=== PATIENT | male | born 1965 | race Caucasian/White ===

== ENCOUNTER 2024-09-09 14:06 | Emergency (ER) | payer MEDICAID ==
[~2024-09-09] VITALS: Ht 185.4 cm; Wt 88.5 kg
[~2024-09-09 14:06] MED LIST: ASPI-543 PO; ATOR-47 PO; B-COCAP34 PO; CLOP75TA70 PO; LOSA-534 PO; THIA100T10 PO
[2024-09-09 14:15] VITALS: BP 125/58; RESP 18; TEMP 97.5; O2SAT 97
[2024-09-09 15:23] LABS: Basophils # (auto) 0.1 10 ^3/uL (0-0.2); Basophils % (auto) 1.1 % (0.0-2.0); Eosinophils # (auto) 0.2 10 ^3/uL (0-0.8); Eosinophils % (auto) 2.7 % (0.0-7.0); Hematocrit 41.6 % (41.0-53.0); Hemoglobin 13.9 g/dL (13.5-17.5); Lymphocytes # (auto) 3.7 10 ^3/uL (0.4-5.4); Lymphocytes % (auto) 41.8 % (10.0-50.0); Mean Corpuscular Hemoglobin 32.4 pg (28.0-32.0); Mean Corpuscular Hgb Conc. 33.4 g/dL (32.0-36.0); Monocytes # (auto) 0.7 10 ^3/uL (0-1.3); Monocytes % (auto) 8.1 % (0.0-12.0); Neutrophils # (auto) 4.1 10 ^3/uL (1.6-8.6); Neutrophils % (auto) 46.3 % (37.0-80.0); Nucleated Red Blood Cells % 0.1 %; Platelet Count (auto) 269 10^3/uL (140-450); Red Blood Cells 4.29 10^6/uL (4.5-5.90); Red Cell Distribution Width 14.6 % (11.8-14.3); White Blood Cell 8.7 10^3/uL (4.4-10.8)
--- NOTE | 2024-09-09 15:24 | DVH ---
EXAM: CT HEAD WITHOUT CONTRAST; DATE: 09/09/2024 03:00 PM HISTORY: stroke workup, history of stroke, here w memory problem COMPARISON: None TECHNIQUE: Axial images were obtained and reformatted in coronal and sagittal planes. All CT scans at this medical facility are performed using dose modulation techniques as appropriate t o a performed exam including the following: Automated exposure control was utilized; adjustment of th e MA and/or KV according to patient size; and use of iterative reconstruction technique. CT Dose: CTDI volume is 56.11 mGy. Dose-length product is 899.4 mGy*cm FINDINGS: Supratentorial Region: No evidence for large acute territorial ischemia. No intracranial hemorrhage is noted. Confluent white matter hypoattenuating foci are noted bilaterally, which typically reflect chronic microvascular ischemic changes. Posterior Fossa: No acute abnormality. Brainstem: Unremarkable. Sellar/Suprasellar Region: Unremarkable. Ventricles, Cisterns, Sulci: Age-appropriate. Orbits: Unremarkable. Paranasal Sinuses: Unremarkable. Mastoid Air Cells: Unremarkable. Vasculature: Intracranial arterial calcified plaque formation noted. Bones/Soft Tissues: No acute abnormality. Other: None. IMPRESSION: 1. No acute intracranial process.
[2024-09-09 15:29] LABS: Potassium 4.5 mmol/L (3.5-5.1); Sodium 139 mmol/L (136-145)
[2024-09-09 15:30] LABS: Anion Gap 3 (5-15); Calcium 9.4 mg/dL (8.7-10.4); Carbon Dioxide 27 mmol/L (20-31)
[2024-09-09 15:32] VITALS: PULSE 56
--- NOTE | 2024-09-09 15:32 | ED.PDOC ---
History of Present Illness HPI Comments 59 y/o M, with a history of 2x previous strokes, HTN, and tobacco use, presents with significant other for c/o headache, dizziness, and chest pain, today. Patient reports being sent over, while receiving preliminary consultation in preparation for upcoming carotid surgery, this week, due to endorsement of co mplaints and to r/o possible stroke. Patient reports on symptoms being ongoing for the past "several months" following initial unprovoked onset. He states on last stroke taking place 2x months ago, states no focal neurologic deficits except for "memory problems. Patient was states that he is currently taking Plavix and denies any recent injuries, foreign travel, or sick contacts. He denies any facial droop, vision or speech changes, dizziness, weakness, or other symptoms. Chief Complaint: Headache Time Seen by MD: 14:50 Primary Care Provider: SUDHA Reviewed Notes: Nurses Notes, Medications, Allergies Allergies: Coded Allergies: Penicillins (Unverified Allergy, Unknown, 09/09/24) Home Meds Reported Medications B-Complex Vitamins (B Complex) Cap, 1 TAB PO, CAP 09/09/24 Aspirin (Aspir-Low) 81 Mg Tab, 81 MG PO DAILY for 30 Days, MG 09/09/24 Losartan Potassium (Losartan Potassium) 50 Mg Tab, 50 MG PO DAILY for 30 Days, MG 09/09/24 Clopidogrel Bisulfate (CLOPIDOGREL) 75 Mg Tab, 75 MG PO DAILY for 30 Days, MG 09/09/24 Thiamine Hcl (VITAMIN B-1) Unknown Strength Tb, PO, TAB 09/09/24 Atorvastatin Calcium (ATORVASTATIN CALCIUM) 80 Mg Tab, 1 TAB PO DAILY, #30 TAB 5 Refills 09/09/24 Information Source: Patient Mode of Arrival: Ambulatory Past Medical History PAST MEDICAL HISTORY: CVA, Depression, HTN Past Medical History (Other): Bipolar disorder, chronic back pain, 2x strokes w/left-visual deficits Surgical History (Other): right-elbow surgery Family History Family History: Unknown Social History Smoker: Cigarettes Alcohol: Denies ETOH Use Drugs: Denies Drug Use Lives In: Home Other cane walker assistance All Other Systems: Reviewed and Negative (Comprehensive systems review obtained and negative except for what is stated in the HPI.) Physical Exam General Appearance: No Apparent Distress, Normal HEENT: Normal ENT Inspection, Pharynx Normal, TMs Normal Neck: Full Range of Motion, Non-Tender, Normal, Normal Inspection Respiratory: Chest Non-Tender, Lungs Clear, No Accessory Muscle Use, No Respiratory Distress, Normal Breath Sounds Cardiovascular: No Edema, No JVD, No Murmur, No Gallop, Normal Peripheral Pulses, Regular Rate/Rhythm Breast Exam: Deferred Gastrointestinal: No Organomegaly, Non Tender, No Pulsatile Mass, Normal Bowel Sounds, Soft Genitalia: Deferred Pelvic: Deferred Rectal: Deferred Extremities: No calf tenderness, Normal capillary refill, Normal inspection, Normal range of motion, Non-tender, No pedal edema Musculoskeletal : Apperance: Normal Neurologic: Alert, sheet layer II-XII nml as Tested, No Motor Deficits, Normal Affect, Normal Mood, No Sensory Deficits, Other (Patient alert and answering questions appropriately, 5/5 strength to bilateral upper and lower extremities, ambulating with a steady gait without assistance, sensation intact to light touch throughout, cranial nerves 2-12 intact, no pronator drift, normal [id number], no truncal ataxia) Cerebellar Function: Normal Reflexes: NOT DONE Skin: Dry, Normal Color, Warm Lymphatic: NOT DONE Was a procedure done? Was a procedure done?: No EKG EKG : Pulse Rate (adult): 56 [place]: Normal Cardiac Rhythm: NSR Block: None Hypertrophy: None ST: Normal Differential Dx Considerations may include: CVA, TIA, migraines, tension headache, ACS X-Ray, Labs, Meds, VS Vital Signs Date Time Temp Pulse Resp B/P (MAP) Pulse Ox O2 Delivery O2 Flow Rate FiO2 09/09/24 15:32 56 09/09/24 14:36 56 09/09/24 14:15 97.5 60 18 125/58 (80) 97 97.5 Lab Test 09/09/24 14:58 09/09/24 14:31 Range/Units White Blood Count 8.7 4.4-10.8 10^3/uL Red Blood Count 4.29 L 4.5-5.90 10^6/uL Hemoglobin 13.9 13.5-17.5 g/dL Hematocrit 41.6 41.0-53.0 % Mean Corpuscular Volume 97.0 80.0-100.0 fL Mean Corpuscular Hemoglobin 32.4 H 28.0-32.0 pg Mean Corpuscular Hemoglobin Concent 33.4 32.0-36.0 g/dL Red Cell Distribution Width 14.6 H 11.8-14.3 % Platelet Count 269 140-450 10^3/uL Mean Platelet Volume 10.3 6.9-10.8 fL Neutrophils (%) (Auto) 46.3 37.0-80.0 % Lymphocytes (%) (Auto) 41.8 10.0-50.0 % Monocytes (%) (Auto) 8.1 0.0-12.0 % Eosinophils (%) (Auto) 2.7 0.0-7.0 % Basophils (%) (Auto) 1.1 0.0-2.0 % Neutrophils # (Auto) 4.1 1.6-8.6 10 ^3/uL Lymphocytes # (Auto) 3.7 0.4-5.4 10 ^3/uL Monocytes # (Auto) 0.7 0-1.3 10 ^3/uL Eosinophils # (Auto) 0.2 0-0.8 10 ^3/uL Basophils # (Auto) 0.1 0-0.2 10 ^3/uL Nucleated Red Blood Cells 0.1 % Prothrombin Time 10.5 9.3-11.8 sec Prothrombin Time INR 0.99 0.9-1.15 Activated Partial Thromboplast Time 28.2 24.5-34.5 SEC Sodium Level 139 136-145 mmol/L Potassium Level 4.5 3.5-5.1 mmol/L Chloride Level 109 H 98-107 mmol/L Carbon Dioxide Level 27 20-31 mmol/L Anion Gap 3 L 5-15 Blood Urea Nitrogen 17 9-23 mg/dL Creatinine 0.84 0.700-1.30 mg/dL Glomerular Filtration Rate Calc 100 >90 mL/min BUN/Creatinine Ratio 20.2 H 10.0-20.0 Serum Glucose 94 74-106 mg/dL Calcium Level 9.4 8.7-10.4 mg/dL B-Type Natriuretic Peptide 35.19 0-100 pg/mL Lipase 36 12-53 U/L POC Glucose 102 70-106 mg/dl X-Ray, Labs, Meds, VS Comment 59-year-old male with a medical history most notable for prior strokes x2 here today for stroke rule out and due to complaints of chest pain. Vital signs stable, afebrile. Physical exam as above without any acute findings including a normal neurologic exam. Labs overall reassuring without any significant acute findings. EKG without evidence of acute ischemia. CT head scan without evidence of acute pathology as well. I informed the patient of his overall unremarkable findings and reassuring workup and he stated that he felt significantly improved and wanted to leave and spent the weekend at home and then return on Thursday for the operation on his carotid artery. I informed the patient that my preference would be to admit him to the hospital for further monitoring, cardiac risk stratification, serial troponins, and possibly MRI of brain/neurology consult however the patient seemed hesitant to this plan. I left the patient and his significant other to think about this plan and when I went to re-evaluate them they had eloped from the waiting room. I attempted to call the patient at his cell phone however no answer. Informed the video clerk who will attempt to contact the patient and have him come back to the ER. Time of 1ST Reevaluation: 15:20 Reevaluation 1ST: Unchanged Patient Education/Counseling: Diagnosis, Treatment Family Education/Counseling: Diagnosis, Treatment Additional Information Previous medical encounters reviewed: N/A The following tests were ordered, and results were reviewed by me: BMP, CBC, BNP, lipase, CT head w/o contrast, partial thromboplastin, prothrombin time w/reflex Additional Information was gathered from interviewing the following independent historians: N/A I reviewed and agreed with the following test results read by other providers: CT head w/o contrast I discussed treatment and results with medical personnel and: Patient Departure 1 Departure Time of Disposition: 19:48 Impression: Primary Impression: Headache Additional Impressions: Dizziness Chest pain History of stroke Disposition: 07 LEFT AWOL/ELOPED Condition: Guarded Critical Care Note Critical Care Time?: No Stability Stability form required: No Heart Score Heart Score: Heart Score Response (Comments) Value History N/A 0 EKG N/A 0 Age N/A 0 Risk Factors N/A 0 Troponin N/A 0 Total 0 KASSY CRUMP Sep 09, 2024 15:32 EMMA OLIVEIRA MD Sep 09, 2024 19:50
[2024-09-09 15:35] LABS: BUN/Creatinine Ratio 20.2 (10.0-20.0); Blood Urea Nitrogen 17 mg/dL (9-23); Glucose 94 mg/dL (74-106); Lipase 36 U/L (12-53)
[2024-09-09 15:36] LABS: Chloride 109 mmol/L (98-107)
[2024-09-09 15:44] LABS: INR 0.99 (0.9-1.15); Partial Thromboplastin Time 28.2 SEC (24.5-34.5); Prothrombin Time 10.5 sec (9.3-11.8)
--- NOTE | 2024-09-15 10:05 | ECG ---
[facility] Test Date: 2024-09-09 Test Time: 14:30:05 Pat Name: BOB FARRAR Department: ER Room: Gender: M [employer] Operator: : 1965 Requested By: EMMA OLIVEIRA Order Number: [id number] Reading MD: Wolfgang Downing Measurements Intervals Omega Rate: 56 P: 25 NM: 171 QRS: -29 QRSD: 91 T: 54 QT: 456 QTc: 441 Interpretive Statements Sinus rhythm Borderline left axis deviation Probable anteroseptal infarct, old Electronically Signed On 09-16-2024 13:34:57 PDT by Wolfgang Downing Please click the below link to view image of tracing.
== END 2024-09-09 19:11 | disposition left against medical advice (07) ==
LOC: EDSEX 14:06 → ER 14:06
DX: R51.9 Headache, unspecified (principal); R42 Dizziness and giddiness; R07.89 Other chest pain; I10 Essential (primary) hypertension; F32.A Depression, unspecified; G89.29 Other chronic pain; F17.210 Nicotine dependence, cigarettes, uncomplicated; Z79.82 Long term (current) use of aspirin; Z86.73 Personal history of transient ischemic attack (TIA), and cerebral infarction without residual deficits; Z79.899 Other long term (current) drug therapy; Z88.0 Allergy status to penicillin; Z79.02 Long term (current) use of antithrombotics/antiplatelets
CPT/HCPCS: 36415; 70450; 80048; 82947; 82962; 83690; 83880; 85025; 85610; 85730; 93005

== ENCOUNTER 2024-09-12 06:19 | Inpatient (IN) | payer MEDICAID ==
[2024-09-12] VITALS (20 sets, daily range): BP systolic 86–128; BP diastolic 47–73; PULSE 48–95; RESP 13–27; TEMP 97.5–97.8; O2SAT 94–98
[~2024-09-12] VITALS: Ht 185.4 cm; Wt 86.2 kg
[2024-09-12] MEDS ORDERED: LIDOCAINE 2% (LOCAL ANESTH.) PF 5ml SDV ONE (09:53)
[2024-09-12] MEDS ORDERED: SUGAMMADEX 200mg/2ml Vial (100MG/ML) IV ONE (09:53)
[2024-09-12] MEDS ORDERED: PROPOFOL 10 MG/ML 20 ML IV ONE (09:53)
[2024-09-12] MEDS ORDERED: ONDANSETRON HCL 4 MG/2 ML VIAL ONE (09:53)
[2024-09-12] MEDS ORDERED: GLYCOPYRROLATE 0.2 MG/ML 1ML VIAL ONE (09:53)
[2024-09-12] MEDS ORDERED: SODIUM CHLORIDE LOCK 10 ML ONE ×2 (09:53→09:57)
[2024-09-12] MEDS ORDERED: ROCURONIUM 10MG/ML 10ML VIAL IV ONE (09:53)
[2024-09-12] MEDS ORDERED: LIDOCAINE HCL 2% TOP JELLY 5ML TOP ONE (09:53)
[2024-09-12] MEDS ORDERED: DexAMETHasone SOD PHOS 10MG/1ML VIAL INJ ONE (09:53)
[2024-09-12] MEDS ORDERED: PHENYLEPHRINE HCL 10 MG/ML VL ONE (09:53)
[2024-09-12] MEDS ORDERED: KETAMINE 50mg/ML 1ml syringe ONE (09:54)
[2024-09-12] MEDS ORDERED: fentaNYL CITRATE 100 MCG/2 ML VL ONE (09:54)
[2024-09-12] MEDS: ceFAZolin 1GM/50ML 100 ML IV ONE (11:40)
[2024-09-12] MEDS ORDERED: ePHEDrine SULFATE 50 MG/ML AMP ONE (12:15)
[2024-09-12] MEDS: LIDOCAINE 1% (LOCAL ANESTH.) PF 5ml SDV ONE (12:16)
[2024-09-12] MEDS ORDERED: ESMOLOL HCL 10 ML IV ONE (12:32)
[2024-09-12] MEDS: BUPIVACAINE 0.25% INJ 50ML VIAL ONE (13:38)
[2024-09-12] MEDS: LIDOCAINE 1% HCL (LOCAL ANESTH.) INJ 20ML MDV ONE (13:38)
--- NOTE | 2024-09-12 14:10 | DVHOP2 ---
Operative Report - 2 Report Details Date: 09/12/24 Preop Diagnosis: Left carotid artery stenosis Postop Diagnosis: Same Surgeon: Basil Beasley MD Anesthesiologist: General endotracheal tube Anesthesia: General Drains: Left LISA drain Consent: The patient was informed of the risks and benefits of the procedure. These include but are not limited to complications of anesthesia, postoperative infection, incomplete relief of symptoms, recurrence of symptoms, damage to blood vessels, nerves and tendons, deep venous thrombosis, pulmonary embolism and possible need for repeat surgery in the future. Complications: None Estimated Blood Loss: 200 mL Findings: Severe left common carotid/internal carotid artery stenosis Indications for Surgery: Left carotid artery stenosis history of CVA Name of Procedure Performed Left carotid endarterectomy Procedure Details Procedure Details: The patient was identified in the preop hold area as being Mr. Bhagat. He was consented and preopped by myself he was brought back to the operating room placed on operative table in supine position after adequate induction of anesthesia antibiotics and time-out the left neck was prepped and draped in n ormal surgical fashion a standard left carotid endarterectomy incision was made Bovie cauterization was used to dissect through the platysma. The sternocleidomastoid muscle was dissected and laterally retracted. The internal jugular vein was also retracted the facial vein branch was ligated with 2-0 silk sutures followed by hemoclips. Dissection was then taken down to the left c ommon carotid artery proximal control of the left common carotid artery was obtained with vessel loops. A dissection of the carotid bulb was then undertaken 1% lidocaine preservative-free was injected at the bifurcation no hemodynamic changes were noted. The superior thyroid artery was then proximally controlled with vessel loops. The external carotid artery was then isolated and controlled with vessel loops. Followed by the internal carotid artery above the level of the plaque. Was controlled with vessel loops. 3000 units of heparin was given to the patient. After approximately 5 minutes the vessels involved were clamped and a arteriotomy was made in the common carotid artery was extended up to the internal carotid artery the plaque was then removed with a [place] once the entire plaque has removed the Burnett shunt was then inserted to reestablish flow. The lumen of the carotid artery was then cleaned out no further debris was left behind and all plaque was removed. Once the lumen was clean the bovine pericardial patch was then brought onto the field and sewn to the common and internal carotid artery in a running fashion with 6 0 Prolene suture. At completion of the anastomosis the shunt had been removed and all vessels involved were flushed prior to completion. At the completion flow was restored to all vessels involved. Two interrupted Prolene sutures were used to stop a suture line bleed. Hemostasis was obtained Surgicel was placed over top of the suture line. A LISA drain was inserted and a lateral incision in the left neck. The carotid artery sheath was then closed with interrupted 2-0 Vicryl sutures followed by the platysmal layer closure with 2-0 Vicryl sutures followed by a dermal layer of 2-0 Vicryl sutures. 4-0 Monocryl subcuticular suture was used for the skin. Dermabond was applied. Patient awoke without any difficulties neurologically intact. Sponge and needle counts were correct at the end of the procedure. Patient was taken to the PACU in a stable condition. Condition Good Disposition pacu BASIL BEASLEY Jr., MD Sep 12, 2024 14:10
[2024-09-12] MEDS ORDERED: hydrALAZINE HCL 20 MG/ML VL IV PRN (14:15)
[2024-09-12] MEDS ORDERED: FLUMAZENIL 0.1 MG/ML INJ 10ML MDV IV PRN (14:15)
[2024-09-12] MEDS ORDERED: NALOXONE HCL 0.4 MG/ML VIAL IV PRN (14:15)
[2024-09-12] MEDS ORDERED: MORPHINE SULFATE INJ 2 MG/ml SYRG IV PRN (14:15)
[2024-09-12] MEDS ORDERED: NITROGLYCERIN 0.4 MG SL TAB SL PRN (14:15)
[2024-09-12] MEDS ORDERED: ONDANSETRON HCL 4 MG/2 ML VIAL IV PRN (14:15)
[2024-09-12] MEDS ORDERED: ePHEDrine SULFATE 50 MG/ML AMP IV PRN (14:15)
[2024-09-12] MEDS ORDERED: fentaNYL CITRATE 100 MCG/2 ML VL IV PRN (14:15)
[2024-09-12] MEDS: HYDROmorphone HCL 2 MG/ML VL/or syr IV PRN (15:02)
[2024-09-12] MEDS: ONDANSETRON HCL 4 MG/2 ML VIAL IV PRN (16:22)
[2024-09-12] MEDS: ONDANSETRON HCL 4 MG/2 ML VIAL ONE (16:23)
[2024-09-13] VITALS (46 sets, daily range): BP systolic 36–128; BP diastolic 23–92; PULSE 53–88; RESP 11–20; TEMP 97.6–98.5; O2SAT 92–99
[2024-09-13] MEDS: OXYCODONE W/ ACETAMINOPHEN 5/325MG TABLET PO PRN (00:09)
--- NOTE | 2024-09-13 07:10 | DVHPN2 ---
Progress Note Date Seen: Sep 13, 2024 Has the PT tested + for MRSA If YES, has PT been informed?: No Medical Necessity Reason Pt with a Central, PICC or Fol: No Subjective Patient reports: No new complaints Review of Systems: HEENT:Normal, CVS:Normal, RESPIRATORY:Normal, GI:Normal, :Normal, MSK:Normal, NEURO:Normal Objective vital signs Vital Sign Date Time Temp Pulse Resp B/P (MAP) Pulse Ox O2 Delivery O2 Flow Rate FiO2 09/13/24 06:00 12 98 Nasal Cannula* 2 28 09/13/24 06:00 88 09/13/24 04:00 97.6 98/53 (68) 97.6 Total Intake and Output 09/12/24 09/12/24 09/13/24 15:00 23:00 07:00 Intake Total 200 ml 50 ml Output Total 20 ml Balance 200 ml 30 ml medications Current Medications Medications Dose Ordered Sig/Yamila Route Start Time Stop Time Status Last Admin Dose Admin Nicardipine HCl 250 ml @ 50 mls/hr Q5H IV 09/12/24 11:00 Nitroglycerin 0.4 mg Q5MINP PRN SL 09/12/24 14:15 Morphine Sulfate 2 mg Q30M PRN IV 09/12/24 14:15 Ondansetron HCl 4 mg Q4HPRN PRN IV 09/12/24 16:15 09/12/24 16:22 4 MG Oxycodone/ Acetaminophen 1 tab Q4HP PRN PO 09/12/24 20:15 09/13/24 00:09 1 TAB Examination: GENERAL:Normal, HEENT:Normal, NECK:Normal (Left carotid incision clean dry and intact no edema. LISA drain removed.), LUNGS:Normal, CVS:Normal, ABDOMEN:Normal, MSK:Normal, SKIN:Normal, NEURO:Normal, :Normal Problem List/Assessment/Plan Problem List/Assessment/Plan S/P left carotid endarterectomy postop day 1. DC A-line DC Canela Out of bed Advanced diet Discharged home once medically stable Plan discussed with: Patient My Orders My Orders Orders - WESTON MONREAL Jr., MD Procedure Category Date Status Time Admit ADMIT 09/12/24 Transmitted 14:10 Nitroglycerin PHA 09/12/24 In Process Sublingual (Ntrostat 14:15 Morphine Sulfate PHA 09/12/24 In Process Injection 14:15 Stat Ekg For Chest RITCHIE 09/12/24 In Process Pain 14:10 Notify Of Changes [facility] 09/12/24 In Process From Base 14:10 It Applications Manager For [facility] 09/12/24 In Process 24 Hours 14:10 Emergency Dysrhythmia [facility] 09/12/24 In Process Protocol 14:10 Rhythm Strips Once RITCHIE 09/12/24 In Process Every Shift 14:10 Oxygen By Nasal RT 09/12/24 Transmitted Cannula 14:10 Regular Diet DIET 09/12/24 Transmitted Dinner Oxycodone W/ Acet PHA 09/12/24 In Process 5/325mg Tab (Percocet 20:15 D/C Canela RITCHIE 09/13/24 Transmitted 07:07 D/C Pa Catheter ORDERS 09/13/24 Transmitted 07:07 WESTON MONREAL Jr., MD Sep 13, 2024 07:10
[2024-09-13] MEDS ORDERED: NICO14DI29 TD (13:19)
[2024-09-13] MEDS ORDERED: NICO21DI37 TD (13:19)
--- NOTE | 2024-09-13 13:20 | DVHHP2 ---
Review of Systems Allergies: Coded Allergies: Penicillins (Unverified Allergy, Unknown, 09/09/24) Medications Current Medications Medications Dose Ordered Sig/Yamila Route Start Time Stop Time Status Last Admin Dose Admin Nicardipine HCl 250 ml @ 50 mls/hr Q5H IV 09/12/24 11:00 Nitroglycerin 0.4 mg Q5MINP PRN SL 09/12/24 14:15 Morphine Sulfate 2 mg Q30M PRN IV 09/12/24 14:15 Ondansetron HCl 4 mg Q4HPRN PRN IV 09/12/24 16:15 09/12/24 16:22 4 MG Oxycodone/ Acetaminophen 1 tab Q4HP PRN PO 09/12/24 20:15 09/13/24 00:09 1 TAB Exam Vital Signs Vital Signs Date Time Temp Pulse Resp B/P (MAP) Pulse Ox O2 Delivery O2 Flow Rate FiO2 09/13/24 12:00 98.5 67 17 110/57 (74) 94 98.5 09/13/24 10:00 Nasal Cannula* 2 28 Assessment/Plan Assessment/Plan SEE DICTATED NOTE Plan discussed with: Patient My Orders Orders - KEESHA ROBERTS MD Procedure Category Date Status Time Discharge DISCHARGE 09/13/24 Transmitted 13:17 Date of Service: Sep 13, 2024 Billing Provider: KEESHA ROBERTS MD Common Visit Codes: 53515-[id number] INP/OBS CARE (HIGH) Secondary Visit Codes: 52872-[id number] CHNG SMOKING >10MIN KEESHA ROBERTS MD Sep 13, 2024 13:20
--- NOTE | 2024-09-13 13:21 | DVHDS2 ---
Discharge Summary Date of Admission Sep 12, 2024 at 14:10 Date of Discharge: Sep 13, 2024 Brief Hx & Hospital Course: SEE DICTATED NOTE Condition at Discharge: Good Final Diagnosis/Problems List CAROTID ENDARTECTOMY Discharge Disposition: Home Discharge Instruct/Medications Diet: Cardiac 2g Na,low cholest Activity: No Restrictions, As Tolerated Follow Up/Referral: FU WITH PCP/SURGERY Medications: RESUME HOME MEDS SCRIPT TO PHARMACY Discharge Statement: "Patient was advised to return to the ER or call 911 if any headaches, dizziness, shortness of breath, chest pain, abdominal pain, bleeding, fevers, or worsening of medical condition. Patient was counseled about treatment plan, medications, possible side effects, patientverbalized understanding. All questions were answered to the best of my ability. This discharge took greater then 30 minutes in planning, reviewing documentation, counseling the patient, and discussing with other team members." ASSESSMENT ASSESSMENT Assessment CAROTID ENDARTECTOMY Date of Service: Sep 13, 2024 Billing Provider: KEESHA ROBERTS MD Common Visit Codes: 48832-TWJ/OBS DISCH DAY >30min KEESHA ROBERTS MD Sep 13, 2024 13:21
--- NOTE | 2024-09-13 13:30 | DVHDS ---
DATE OF DISCHARGE: 09/13/2024 HISTORY OF PRESENT ILLNESS: The patient is a 59-year-old gentleman who was admitted after he underwent left carotid endarterectomy and has history of hypertension, hyperlipidemia, tobacco abuse and previous CVA. HOSPITAL COURSE: The patient did well postoperatively. He has been cleared for discharge by Dr. Beasley. The patient will be discharged to resume his home medications as well as to be on nicotine patch in a tapering dose. He will follow up with his primary as well as Dr. Beasley. FINAL DIAGNOSES: Therefore, * History of cerebrovascular accident. * Hypertension. * Hyperlipidemia. * Tobacco abuse. * Status post left carotid endarterectomy. Time spent in discharge planning and review of plan with the patient's family and nursing was 37 minutes. MD HUMPHREY Pena/MOISE TID: [id number] RECEIPT: [id number]
--- NOTE | 2024-09-13 14:02 | DVHHP ---
ADMIT DATE: 09/13/2024 HISTORY OF PRESENT ILLNESS: The patient is a 59-year-old gentleman who was admitted after he had undergone left carotid endarterectomy. The patient denies any significant pain. No new focal deficits. No chest pain, no shortness of breath. No nausea or vomiting. REVIEW OF SYSTEMS: Review of rest of systems are otherwise currently negative. PAST MEDICAL HISTORY: Significant for hypertension, hyperlipidemia, stroke that affected his right side along with . SOCIAL HISTORY: Smokes about a pack a day. Denies alcohol intake. Lives with family. FAMILY HISTORY: Negative. PHYSICAL EXAMINATION: GENERAL: The patient is awake, alert. VITAL SIGNS: Temperature of 98.5, pulse 67 per minute, blood pressure 110/57. SHEENT: Unremarkable except for dressing on the left neck. NECK: There is no JVD, no pedal edema. LUNGS: Equal bilaterally. No added sounds. CARDIOVASCULAR SYSTEM: S1 and S2 are regular. No murmurs. ABDOMEN: Soft. There is no edema, no organomegaly. NEUROLOGIC: The patient has a vision disturbance, especially involving his upper gan. MUSCULOSKELETAL: Normal. ASSESSMENT AND PLAN: * Hypertension, for which the patient's blood pressure will be monitored. * Hyperlipidemia. * Tobacco abuse, for which he has been advised to quit. The patient will be placed on nicotine patch. Time spent was 11 minutes. * History of cerebrovascular accident. * Status post left carotid endarterectomy, for which he will be monitored for focal deficits as well as for hemodynamics. MD HUMPHREY Pena/ZOLTAN/MARY TID: [id number] RECEIPT: [id number]
--- NOTE | 2024-09-15 13:44 | DVHINCON2 ---
Date Seen: Sep 12, [address]ascular surgery Dr. Beasley. Reason for Consultation Medical management. History of Present Illness 59-year-old male with a known history of hypertension, chronic tobacco use disorder, left carotid artery stenosis with a previous history of CVA presented to the hospital for elective procedure for left carotid artery stenosis. Patient was underwent successful left carotid endarterectomy. Postprocedure patient was fairly well. Patient was initially was on nicardipine drip which was discontinued. Dr. Beasley cleared the patient to be discharged with close follow up as an outpatient with the PCP has been as with vascular surgery. Tobacco cessation counseling has been discussed with the patient. Family History: Patient reports no known family medical history. Allergies: Coded Allergies: Penicillins (Unverified Allergy, Unknown, 09/09/24) Home Meds Active Scripts Nicotine (Nicotine Transdermal Syst) 21 Mg/24 Hr Dis, 21 MG TD DAILY for 30 Days, #30 DIS Prov:KEESHA ROBERTS MD 09/13/24 Nicotine (Nicotine Transdermal Syst) 14 Mg/24 Hr Dis, 14 MG TD DAILY for 30 Days, #30 DIS Prov:KEESHA ROBERTS MD 09/13/24 Reported Medications B-Complex Vitamins (B Complex) Cap, 1 TAB PO, CAP 09/09/24 Aspirin (Aspir-Low) 81 Mg Tab, 81 MG PO DAILY for 30 Days, MG 09/09/24 Losartan Potassium (Losartan Potassium) 50 Mg Tab, 50 MG PO DAILY for 30 Days, MG 09/09/24 Clopidogrel Bisulfate (CLOPIDOGREL) 75 Mg Tab, 75 MG PO DAILY for 30 Days, MG 09/09/24 Thiamine Hcl (VITAMIN B-1) Unknown Strength Tb, PO, TAB 09/09/24 Atorvastatin Calcium (ATORVASTATIN CALCIUM) 80 Mg Tab, 1 TAB PO DAILY, #30 TAB 5 Refills 09/09/24 Vital Signs Vital Signs Date Time Temp Pulse Resp B/P (MAP) Pulse Ox O2 Delivery O2 Flow Rate FiO2 09/13/24 15:32 63 15 112/56 (74) 96 09/13/24 14:00 Room Air* 0 21 09/13/24 12:00 98.5 98.5 Labs/Diagnostic Data Microbiology Date/Time Source Procedure Growth Status 09/13/24 14:20 Nose MRSA Screen - Final Complete Assessment 59-year-old male with a known history of hypertension, chronic tobacco use disorder, left carotid artery stenosis with a previous history of CVA presented to the hospital for elective procedure for left carotid artery stenosis. Patient was underwent successful left carotid endarterectomy. Postprocedure patient was fairly well. Patient was initially was on nicardipine drip which was discontinued. Dr. Beasley cleared the patient to be discharged with close follow up as an outpatient with the PCP has been as with vascular surgery. Tobacco cessation counseling has been discussed with the patient. Plan discussed with: Patient Date of Service: Sep 12, 2024 Billing Provider: INDERJIT LOPEZ MD Common Visit Codes: NOT BILLABLE INDERJIT LOPEZ MD Sep 15, 2024 13:44
== END 2024-09-13 15:36 | disposition home or self-care (01) | DRG 24 ==
LOC: EDSEX → SUR 06:19 → OVERFLOW 14:10 → ICU CENTRL 18:04
PROVIDERS: ADMIT Surgery Vascular Surgery; ATTEND Surgery Vascular Surgery
PROC: 03CL0ZZ Extirpation of Matter from Left Internal Carotid Artery, Open Approach (ICD-10-PCS; 2024-09-12)
PROC: 03UL0KZ Supplement Left Internal Carotid Artery with Nonautologous Tissue Substitute, Open Approach (ICD-10-PCS; 2024-09-12)
PROC: 03CJ0ZZ Extirpation of Matter from Left Common Carotid Artery, Open Approach (ICD-10-PCS; principal; 2024-09-12 11:40)
DX: I65.22 Occlusion and stenosis of left carotid artery (principal); E78.5 Hyperlipidemia, unspecified; I10 Essential (primary) hypertension; F17.210 Nicotine dependence, cigarettes, uncomplicated; Z88.0 Allergy status to penicillin; Z86.73 Personal history of transient ischemic attack (TIA), and cerebral infarction without residual deficits; Z79.899 Other long term (current) drug therapy
CPT/HCPCS: 86850; 86900; 86901; 87081; G0378; J1100; J1642; J2003; J2405; J2704; J3490